=== PATIENT | female | born 1945 | race Caucasian/White ===

== ENCOUNTER → 2020-02-19 09:15 | Outpatient (BNVA) | payer MEDICARE, OTHER, SELFPAY | PROVIDERS: Family Provider Nurse Practitioner; PCP Nurse Practitioner; Visit Provider Nurse Practitioner | DX: E55.9 Vitamin D deficiency, unspecified (principal); E78.5 Hyperlipidemia, unspecified; I10 Essential (primary) hypertension | CPT/HCPCS: 80053; 80061; 82306 ==

== ENCOUNTER → 2020-07-11 09:28 | Outpatient (BNVA) | payer MEDICARE, OTHER, SELFPAY | PROVIDERS: Family Provider Nurse Practitioner; PCP Nurse Practitioner; Visit Provider Nurse Practitioner | DX: I10 Essential (primary) hypertension (principal); K21.9 Gastro-esophageal reflux disease without esophagitis; F41.8 Other specified anxiety disorders; M54.16 Radiculopathy, lumbar region; E78.2 Mixed hyperlipidemia | CPT/HCPCS: 80053; 80061 ==

== ENCOUNTER → 2021-01-08 09:35 | Outpatient (BNVA) | payer MEDICARE, OTHER, SELFPAY | PROVIDERS: Family Provider Nurse Practitioner; PCP Nurse Practitioner; Visit Provider Nurse Practitioner | DX: I10 Essential (primary) hypertension (principal); E78.2 Mixed hyperlipidemia; K21.9 Gastro-esophageal reflux disease without esophagitis; M54.16 Radiculopathy, lumbar region; J30.1 Allergic rhinitis due to pollen; F41.8 Other specified anxiety disorders | CPT/HCPCS: 80053; 80061; 84443 ==

== ENCOUNTER → 2021-01-09 11:56 | Outpatient (BNVA) | payer MEDICARE, OTHER, SELFPAY | PROVIDERS: Family Provider Nurse Practitioner; PCP Nurse Practitioner; Visit Provider Nurse Practitioner | DX: I10 Essential (primary) hypertension (principal) | CPT/HCPCS: 81003; 87086 ==

== ENCOUNTER → 2021-04-22 14:54 | Outpatient (BNVA) | payer MEDICARE, OTHER, SELFPAY | PROVIDERS: Family Provider Nurse Practitioner; PCP Nurse Practitioner; Visit Provider Nurse Practitioner Family | DX: J06.9 Acute upper respiratory infection, unspecified (principal); Z20.822 Contact with and (suspected) exposure to COVID-19 | CPT/HCPCS: 87635 ==

== ENCOUNTER → 2021-07-07 09:20 | Outpatient (BNVA) | payer MEDICARE, OTHER, SELFPAY | PROVIDERS: Family Provider Nurse Practitioner; PCP Nurse Practitioner; Visit Provider Nurse Practitioner | DX: I10 Essential (primary) hypertension (principal); E55.9 Vitamin D deficiency, unspecified; E78.2 Mixed hyperlipidemia; K21.9 Gastro-esophageal reflux disease without esophagitis; M54.16 Radiculopathy, lumbar region; J30.1 Allergic rhinitis due to pollen; F41.8 Other specified anxiety disorders | CPT/HCPCS: 80053; 80061; 81000; 82306; 84443; 85025 ==

== ENCOUNTER → 2021-12-19 10:40 | Outpatient (BNVA) | payer MEDICARE, OTHER, SELFPAY | PROVIDERS: Family Provider Nurse Practitioner; PCP Nurse Practitioner; Visit Provider Nurse Practitioner | DX: I10 Essential (primary) hypertension (principal); E78.5 Hyperlipidemia, unspecified | CPT/HCPCS: 80053; 80061 ==

== ENCOUNTER → 2022-04-16 09:58 | Outpatient (BNVA) | payer MEDICARE, OTHER, SELFPAY | PROVIDERS: Family Provider Nurse Practitioner; PCP Nurse Practitioner; Visit Provider Nurse Practitioner Family | DX: R05.3 Chronic cough (principal); I10 Essential (primary) hypertension; T67.5XXA Heat exhaustion, unspecified, initial encounter | CPT/HCPCS: 71046; 80053; 81000; 84443 ==

== ENCOUNTER → 2022-06-18 09:45 | Outpatient (BNVA) | payer MEDICARE, OTHER, SELFPAY | PROVIDERS: Family Provider Nurse Practitioner; PCP Nurse Practitioner; Visit Provider Nurse Practitioner | DX: E78.2 Mixed hyperlipidemia (principal); K21.9 Gastro-esophageal reflux disease without esophagitis; M54.16 Radiculopathy, lumbar region; I10 Essential (primary) hypertension; J30.1 Allergic rhinitis due to pollen; F41.8 Other specified anxiety disorders; E55.9 Vitamin D deficiency, unspecified | CPT/HCPCS: 80053; 80061; 81000; 82306 ==

== ENCOUNTER → 2022-10-12 15:40 | Outpatient (BNVA) | payer MEDICARE, OTHER, SELFPAY | PROVIDERS: Family Provider Nurse Practitioner; PCP Nurse Practitioner; Visit Provider Nurse Practitioner | DX: F41.8 Other specified anxiety disorders (principal); I10 Essential (primary) hypertension | CPT/HCPCS: 80053; 85025 ==

== ENCOUNTER → 2023-03-04 09:43 | Outpatient (BNVA) | payer MEDICARE, OTHER, SELFPAY | PROVIDERS: Family Provider Nurse Practitioner; PCP Nurse Practitioner; Visit Provider Nurse Practitioner | DX: E78.2 Mixed hyperlipidemia (principal); K21.9 Gastro-esophageal reflux disease without esophagitis; M54.16 Radiculopathy, lumbar region; I10 Essential (primary) hypertension; J30.1 Allergic rhinitis due to pollen; F41.8 Other specified anxiety disorders; E55.9 Vitamin D deficiency, unspecified | CPT/HCPCS: 80053; 80061; 81000; 82306; 84443 ==

== ENCOUNTER → 2023-08-12 10:35 | Outpatient (BNVA) | payer MEDICARE, OTHER, SELFPAY | PROVIDERS: Family Provider Nurse Practitioner; PCP Nurse Practitioner; Visit Provider Nurse Practitioner | DX: I10 Essential (primary) hypertension (principal); E78.2 Mixed hyperlipidemia; K21.9 Gastro-esophageal reflux disease without esophagitis; M54.16 Radiculopathy, lumbar region; F41.8 Other specified anxiety disorders; Z23 Encounter for immunization | CPT/HCPCS: 80053; 80061 ==

== ENCOUNTER → 2023-11-04 11:20 | Outpatient (BNVA) | payer MEDICARE, OTHER, SELFPAY | PROVIDERS: Family Provider Nurse Practitioner; PCP Nurse Practitioner; Visit Provider Nurse Practitioner | DX: I10 Essential (primary) hypertension (principal); R06.02 Shortness of breath; E78.2 Mixed hyperlipidemia; K21.9 Gastro-esophageal reflux disease without esophagitis; M54.16 Radiculopathy, lumbar region; F41.8 Other specified anxiety disorders | CPT/HCPCS: 80053; 80061; 84443 ==

== ENCOUNTER 2023-11-12 09:18 | Outpatient (CLI) | payer MEDICARE, OTHER, SELFPAY ==
--- NOTE | 2023-11-12 09:45 | USCV_ITS ---
Shiela Lopez Age: 78 Gender: F : 1945 Exam Date: 11/12/2023 09:50 Ordering Phys: Bernadette Candelario Technologist: Jesse Shane [place] [facility] [place]: hypertension BP: 128 / 78 HR: 0 Rhythm: Sinus Technical Quality: Adequate MEASUREMENTS (Male / Female) Normal Values 2D ECHO LVOT Diameter 1.6 cm IVC Diameter 1.5 cm M-MODE LA Ao Ratio MM 1.0 AV Cusp Separation MM 1.4 cm DOPPLER AV Peak Velocity 157.0 cm/s AV Area Cont Eq vti 1.3 cm squared MV Area PHT 4.6 cm squared Mitral E to A Ratio 1.0 TV Peak Velocity 188.3 cm/s TR Peak Velocity 206.0 cm/s TR Peak Gradient 17.0 mmHg PV Peak Velocity 65.0 cm/s FINDINGS Left Ventricle Normal left ventricular size and systolic function, EF 60%.no regional wall motion abnormalities. Grade I/IV diastolic dysfunction (abnormal relaxation filling pattern), normal to mildly elevated filling pressures. Mild left ventricular hypertrophy. No regional wall motion abnormalities. Right Ventricle The right ventricle is normal in size and function. Right Atrium The right atrium is normal in size. Left Atrium The left atrium is normal in size. Mitral Valve No gross abnormalities noted Aortic Valve Trace to mild aortic valve regurgitation. Tricuspid Valve No gross abnormalities noted Pulmonic Valve Mild pulmonary valve regurgitation. Pericardium Normal pericardium without effusion. Aorta Normal ascending aorta dimension. IVC Normal inferior vena cava. CONCLUSIONS Normal left ventricular size and systolic function, EF 60%.no regional wall motion abnormalities. Grade I/IV diastolic dysfunction (abnormal relaxation filling pattern), normal to mildly elevated filling pressures. Mild left ventricular hypertrophy. No regional wall motion abnormalities. Trace to mild aortic valve regurgitation. Mild pulmonary valve regurgitation. There is no pericardial effusion. There are no intracardiac masses. No similar previous studies are available for comparison Dr Carlyle Turner MD [facility] (Electronically Signed) Final Date: 22 November 2023 09:36 S
== END 2023-11-12 09:19 | disposition home or self-care (01) ==
LOC: RAD 09:19
PROVIDERS: Family Provider Nurse Practitioner; PCP Nurse Practitioner; Visit Provider Nurse Practitioner
DX: I10 Essential (primary) hypertension (principal); I51.89 Other ill-defined heart diseases; I37.1 Nonrheumatic pulmonary valve insufficiency
CPT/HCPCS: 93306

== ENCOUNTER → 2023-12-22 15:03 | Outpatient (BNVA) | payer MEDICARE, OTHER, SELFPAY | PROVIDERS: Family Provider Nurse Practitioner; PCP Nurse Practitioner; Referring Provider Nurse Practitioner; Visit Provider Internal Medicine Cardiovascular Disease | DX: R07.9 Chest pain, unspecified (principal); I44.4 Left anterior fascicular block; R06.02 Shortness of breath; R07.89 Other chest pain; I10 Essential (primary) hypertension; E78.2 Mixed hyperlipidemia; Z78.9 Other specified health status; R94.31 Abnormal electrocardiogram [ECG] [EKG] | CPT/HCPCS: 93005; 99204 ==

== ENCOUNTER 2024-02-11 08:41 | Outpatient (CLI) | payer MEDICARE, OTHER, SELFPAY ==
[2024-02-11 09:14] VITALS: BMI 28.5
--- NOTE | 2024-02-11 09:18 | NMCV_ITS ---
NM zurdo perf SPECT r/s* [id number] Shiela Lopez Age: 78 Gender: F : 1945 Exam Date: 02/11/2024 09:39 Ordering Phys: Carlyle Turner MD ([email or web address]) Technologist: CHRISTIAN Cohen Exam Location: [facility] Indications: CORONARY ANGIOPLASTY STATUS STRESS TEST Please see separate stress test report in [facility] for full findings IMAGE PROTOCOL Rest/Stress 1 Lexiscan Day Radiopharmaceutical Dose (mCi) Administration Site Administered by Rest: Tc-99m 10.4 IV CHRISTIAN Small Sestamibi Stress:Tc-99m 32.7 IV CHRISTIAN Small Sestamibi Rest: 11-Feb-2024 60 Discovery 630 Stress: 11-Feb-2024 30 Discovery 630 0.4mg Lexiscan. Supine position only as patient was unable to lay prone. SPECT RESULTS Technical Quality: Excellent Raw Data Analysis: Normal Image Corrections: No attenuation or motion correction applied Summed Stress Score: 11 Summed Rest Score: 2 Summed Difference Score: 9 PERFUSION FINDINGS Moderate area of minimal to moderately decreased tracer uptake involving all the inferior, inferolateral, apical lateral, apical septal and LV apex. Significant reversibility was noted in these all these regions FUNCTIONAL RESULTS (calculated via Gated SPECT) Stress Image LV EF (%): 84 Stress EDV (mL):62 TID: 0.89 Stress ESV (mL):10 FUNCTIONAL FINDINGS: Segmental wall motion analysis revealing no gross wall motion abnormalities IMPRESSIONS 1. Myocardial perfusion imaging revealing moderate area of reversible defect involving the inferior, inferolateral and apical regions suggesting ischemia, predominantly in the distribution of the left circumflex artery with some involvement of the right coronary artery. 2. Normal LV ejection fraction of 84% 3. LV wall motion analysis revealing no gross wall motion abnormalities. 4. Normal LV volume. No similar previous studies are available for comparison Dr Carlyle Turner MD [facility] (Electronically Signed) Final Date: 11 Feb 2024 14:13 S
--- NOTE | 2024-02-11 09:18 | ECG_ITS ---
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 Interpretive Statements NAME OF STUDY: LEXISCAN SESTAMIBI STRESS TEST INDICATION: Chest Pain; Shortness of Breath PROCEDURE: At the baseline, the EKG revealed sinus bradycardia with a poor R wave progression. 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 Left axis deviation. Voltage criteria for LVH.. The baseline heart was 59 bpm with a blood pressue of 158/84 mm of Hg Lexiscan was infused over a period of 20 seconds. A total of 0.4 milligrams of Lexiscan was infused. The stress phase was continued for a total of 5 minutes. Heart rate at the end of the stress phase was left anterior descending artery bpm with a blood pressure 149/68 mm of Hg. The EKG at the peak infusion revealed no significant changes. Sestamibi was injected 20 seconds after the Lexiscan infusion. Heart rate at the end of the recovery phase was 77 bpm with a blood pressure of 152/67 mm of Hg. CONCLUSION: 1. No significant EKG changes with the LexiScan infusion 2. No LexiScan induced chest pain or cardiac arrhythmia 3. Normal blood pressure and heart rate response 4. Sestamibi/sestamibi perfusion scan pending; see separate report. Electronically Signed On 02-12-2024 18:41:41 CDT by Carlyle Turner M.D. [id number]
[2024-02-11] MEDS: regadenoson 0.4 Mg/5 ml Syringe 0.400000000000000022 MG IVP (10:38)
[2024-02-11 10:52] VITALS: BP 116/84; PULSE 62
== END 2024-02-11 08:42 | disposition home or self-care (01) ==
PROVIDERS: PCP Nurse Practitioner; Visit Provider Internal Medicine Cardiovascular Disease
DX: R06.09 Other forms of dyspnea (principal); Z98.61 Coronary angioplasty status; R07.9 Chest pain, unspecified
CPT/HCPCS: 36415; 78452; 93017; 96374; A9500; J2785

== ENCOUNTER 2024-02-16 08:52 | Outpatient (CLI) | payer MEDICARE, OTHER, SELFPAY ==
--- NOTE | 2024-02-16 09:30 | CT_ITS ---
WS: [id number] CT chest wo con [id number] HISTORY: R06.02 - Shortness of breath TECHNIQUE: Axial imaging performed through the thorax. Coronal and sagittal reformats are submitted. All CT scans at [facility] use at least one of these dose optimization techniques: automated exposure control; mA and/or kV adjustment per patient size (includes targeted exams where dose is mat ched to clinical indication); or iterative reconstruction. CONTRAST: None DLP: 410.86 mGy.cm COMPARISON: None available. Lungs and central airway: Lungs are well-aerated. There is a small slightly spiculated nodule measuri ng 3.5 mm in the RIGHT upper lobe. No additional mass or nodule. No pneumonia. Pleura: Normal. No pleural effusion. Heart and pericardium: Normal size heart with no pericardial effusion. Mediastinum and chad: Hilar and paratracheal lymph nodes remain normal size but the number is increas ed. This may be reactive. Vessels: Moderate atherosclerosis thoracic aorta. Pulmonary artery is mildly dilated up to 3.1 cm. Chest wall and lower neck: No soft tissue masses. Upper abdomen: Large hiatal hernia. High density material in the stomach may be medicinal. Patient lockwood s known numerous hepatic cysts. One of the cysts now has calcification and is slightly decreased in s ize. Spleen is are elevated. Osseous structures: Focal increase in thoracic kyphosis centered at the thoracolumbar junction. CT/CT chest wo con [id number] IMPRESSION: 1. Slightly spiculated nodule in the RIGHT upper lobe at 3.5 mm. Recommend fol low-up chest CT in 3 months. 2. Large hiatal hernia. Hiatal hernia has increased in size since 2017. 3. Patient has numerous known hepatic cysts. One of the cysts has decreased in size and now contains calcification and Hounsfield units are elevated. Recomme nd follow-up ultrasound of the liver to evaluate for solid mass.
== END 2024-02-16 08:53 | disposition home or self-care (01) ==
LOC: RAD 08:52
PROVIDERS: PCP Nurse Practitioner; Visit Provider Nurse Practitioner
DX: R06.02 Shortness of breath (principal); K44.9 Diaphragmatic hernia without obstruction or gangrene; K76.89 Other specified diseases of liver
CPT/HCPCS: 71250; 99215

== ENCOUNTER → 2024-03-01 14:29 | Outpatient (BNVA) | payer MEDICARE, OTHER, SELFPAY | PROVIDERS: PCP Nurse Practitioner; Visit Provider Nurse Practitioner | DX: N39.0 Urinary tract infection, site not specified (principal); F41.8 Other specified anxiety disorders | CPT/HCPCS: 81000 ==

== ENCOUNTER → 2024-03-16 08:45 | Outpatient (BNVA) | payer MEDICARE, OTHER, SELFPAY | PROVIDERS: PCP Nurse Practitioner; Visit Provider Internal Medicine Cardiovascular Disease | DX: R07.89 Other chest pain (principal); Z79.01 Long term (current) use of anticoagulants; R06.02 Shortness of breath | CPT/HCPCS: 80048; 85025 ==

== ENCOUNTER 2024-03-20 05:47 | Outpatient (CLI) | payer MEDICARE, OTHER, SELFPAY ==
[2024-03-20] VITALS (24 sets, daily range): BP systolic 130–173; BP diastolic 64–86; PULSE 52–69; RESP 6–18; TEMP 36.7; O2SAT 92–98; BMI 29.0
--- NOTE | 2024-03-20 06:00 | XACV_ITS ---
Exam Room: 2 Ht: 155 cm Wt: 70 kg BSA: 1.76 m2 Gender: Female : 1945 Any Known Allergies: Other Exam Priority: Routine Procedure(s): Procedure Description: Diagnostic procedure Procedure Description: Left Heart Catheterization Procedure Description: Left ventriculography Procedure Description: Coronary Angiography Johnny SANTO; Diagnostic Cath Status: Elective Diagnostic Findings * The left anterior descending artery is a medium caliber vessel which appears to taper off to its the LV apex. The proximal segment was found to have mild to moderate coronary calcification. No significant stenosis were noted. The first diagonal branch was found to have an ostial 50% narrowing. No other significant stenotic lesions.. * The left main is a medium caliber vessel with minimal intimal irregularities and mild diffuse coronary calcification. * The left circumflex artery is a medium caliber was which also was found to have some intimal irregularities proximally. It gives off a high obtuse marginal branch which also was found to mild diffuse intimal irregularities. The mid circumflex artery was found to have mild diffuse intimal irregularities. * The right coronary artery is a medium caliber dominant vessel which appears to have minimal intimal irregularities in the distal segment. No significant stenotic lesions were noted. Conclusions 1. 78-year-old white female with history of hypertension, dyslipidemia, presents with complaints of chest pain and shortness of breath. She had a Myocardial perfusion imaging which revealed moderate area of reversible defect in the distribution of the left circumflex artery with minimal reversible defect in the RCA territory. In view of the patient's symptoms and the abnormal objective findings, in order to further evaluate the coronary status, a cardiac catheterization was recommended. Patient underwent left heart catheterization with the left and right coronary angiogram and LV angiogram today. The findings are as follows. 2. Mild diffuse coronary artery disease. Mild to moderate calcification in the proximal segments of all the 3 coronary arteries. Normal LV ejection fraction 65%. Features of left-ventricular diastolic dysfunction with an LVEDP of 28 mmHg. Interventional RX Recommendation: none Diagnostic RX Recommendation: medical therapy and/or counseling LV EDP: 28 mmHg Ventriculography Ejection Fraction: 65.0 % Left Ventriculography Findings: * The LV gram was performed in the MAGALLANES projection. LV cavity was found to be of normal size. The LV ejection fraction was 65%. No significant valve prolapse or mitral regurgitation. No filling defects were noted. The LVEDP was 28 mmHg. Pressures Phase:Rest AO : 121 / 60 ( 84 ) @ 8:33:00 AM 98 / 73 ( 86 ) @ 8:34:00 AM 94 / 71 ( 84 ) @ 8:41:00 AM 152 / 56 ( 101 ) @ 8:47:00 AM 141 / 45 ( 79 ) @ 8:47:00 AM LV : 136 / -6 / 21 @ 8:46:00 AM 136 / 6 / 28 @ 8:47:00 AM 133 / 8 / 30 @ 8:47:00 AM Valves Phase:DefaultPhase AV : 0.0 @ 7:54:28 AM 0.0 @ 7:54:28 AM AV Mean Gradient: 0.0 @ 7:54:28 AM 0.0 @ 7:54:28 AM Clinical Evaluation EBL: 5mL-10mL Procedural Details Pre-Procedure Time Out. Identified patient by full name and date of as verbalized by the patient/guarantor. Does the consent match the physician's order: Yes. Accurate & Complete Informed Consent: Yes. Inpatient/Outpatient History & Physical on Chart: Yes. If H&P is completed, is and addenduem needed: Yes; If yes, is the addendum complete: Yes. Visualize and Verify Site with Patient/Guarantor: N/A. Relevant Radiology Images available: Yes. Pre-op teaching completed and patient verbalized understanding. The risks, benefits, and alternatives of sedation and/or procedure were discussed by physician. The patient agrees to continue. Procedure started. [facility] Clinical Fraility Score: 3: Managing Well. Production Machine Shop Supervisor Indications: Worsening Angina. Chest Pain Symptom Assessment: Typical Angina Symptoms. Correct patient, site and procedure confirmed by cath team. Current diagnosis: Chest Pain. PERRLA. Strong, equal hand tracing lathe set up operator bilaterally. Lungs clear x 5 lobes. IV Site on Arrival: 20 gauge in the left anticubital. IV Fluids: 0.9% NaCl at KVO. 0 mL infused prior to cath lab radiology technician. Pre Procedural Pulses: bilateral dorsalis pedis was 3+. Pre Procedural Pulses: bilateral posterior tibial was 2+. Pre Procedural Pulses: bilateral radial was 2+. Oxygen started at 2liters/min via nasal canula. right groin was prepped with chloroprep then draped in the usual sterile fashion. right radial was prepped with chloroprep then draped in the usual sterile fashion. Baseline sample Acquired. HR: 71 BPM. Physician arrived. Physician scrubbed in. Immediate Pre-Procedure Time Out. Correct Patient: Yes; Correct Procedure: Yes; Correct Site: Yes; Correct Patient Position: Yes; Correct Supplies: Yes; Dried Flammable Prep: Yes; Blood Products Available: N/A;. Lidocaine 1% infiltrated to the right radial. Arterial access obtained. A 5 samoan Gage catheter in over wire. Multiple views taken of left coronary artery. Catheter redirected to the RCA. Catheter removed over the exchange wire. A 5 samoan JR4 catheter in over wire. Multiple views taken of right coronary artery. Catheter removed over the exchange wire. A 5 samoan Angled Pig catheter in over wire. EDP Sample taken: LV 136/-7,21; HR: 66 BPM; SpO2: 93%. LV gram performed in MAGALLANES @ 10 mL/second for a total of 30 mL. EDP Sample taken: LV 136/6,28; HR: 64 BPM; SpO2: 93%. Pullback taken: LV 133/8,30; AO 152/56(101); Mean: 0mmHg, Peak to Peak: 0mmHg, SEP: 7sec/min; HR: 65 BPM; SpO2: 94%. Catheter removed over the exchange wire. A TR Band was successful obtaining hemostatsis at the Right Radial artery insertion site. Post Procedure: Pulses reassessed and unchanged. PERRLA. Strong, equal hand tracing lathe set up operator bilaterally. No VTE prophylaxis required. Medication's Wasted: Lidocaine 1% = 17 mL. Medication's Wasted: Nitro = 49.7 mcg. Medication's Wasted: Heparin = 1000 units. Medication's Wasted: Other = Fentanyl 50mcg Versed 1 mg. Total IV fluids: 275 mL. Vital chart was stopped. Complications: None. Estimated blood loss: 5mL-10mL. Responsiveness - Normal response to verbal stimuli; alert and oriented, PERRLA. Airway - Unaffected, no intervention required; spontaneous ventilation. Circulation: W/N/L, pulses unchanged. Nausea/Vomiting: No. Procedure completed. Patient transferred by wheelchair to CPRU. Access Site Site: Right Radial artery Sheath Size: 6 Fr Hemostasis Method: TR Band Hemostasis Success: Successful Procedure Medications Start: 7:16 AM Stop: 7:16 AM Medication: Versed Amount: 1 mg Route: I.V. Start: 7:22 AM Stop: 7:22 AM Medication: Fentanyl Amount: 25 mcg Route: I.V. Start: 7:29 AM Stop: 7:29 AM Medication: Verapamil Amount: 5 mg Route: I.A. Start: 7:29 AM Stop: 7:29 AM Medication: Nitrogylcerin Amount: 200 mcg Route: I.A. Start: 7:29 AM Stop: 7:29 AM Medication: 0.9% Saline Amount: 250 ml Route: I.V. bolus Start: 7:31 AM Stop: 7:31 AM Medication: Heparin Amount: 5000 units Route: I.V. Start: 7:37 AM Stop: 7:37 AM Medication: Fentanyl Amount: 25 mcg Route: I.V. Start: 7:43 AM Stop: 7:43 AM Medication: Nitrogylcerin Amount: 100 mcg Route: I.A. I, the attending physician, have reviewed and verified all procedure medications. Yes, all medications given per verbal order History/Risk Factors Hypertension: Yes Dyslipidemia: Yes Peripheral Arterial Disease (PAD): No Myocardial Infarction (OK): No Obesity: No Renal Disease: No Tobacco Use: Never Prior Interventions PCI: No CABG: No Valve Surgery: No Report Signatures Finalized by Dr Carlyle Turner MD [facility] on 03/21/2024 01:04 AM
[2024-03-20] MEDS: diphenhydrAMINE 50 mg Capsule PO (06:15)
[2024-03-20] MEDS: aspirin 325 mg Tablet PO (06:15)
--- NOTE | 2024-03-20 07:06 | PM.HP ---
Providers/Chief Complaint Admitting Physician: NOREEN Turner MD/cardiology Primary Care Provider: Bernadette Candelario, BASKET BRAIDER-C Chief Complaint: R94.39, R06.02, R07.9 History of Present Illness Shiela Lopez is a 78 year old female with a history of hypertension and dyslipidemia, presents with complaints of chest pain, shortness of breath and fatigue. She had a Myocardial perfusion imaging which revealed a moderate area of reversible defect, mostly in the distribution of the left circumflex artery with some involvement of the right coronary artery. In view of her ongoing symptoms, in order to further evaluate the coronary status, a cardiac catheterization was recommended. Patient has no previous history for coronary disease, myocardial infarction or congestive heart failure. Currently has no fever, chills or cough. No other specific complaints. She also has a history of situational anxiety, lumbar radiculopathy, vitamin D deficiency and seasonal allergies. Review of Systems Narrative: CONSTITUTIONAL: No fever or chills. EYES: No blurring of vision or other visual disturbances lately. ENT: No hoarseness of voice, auditory disturbances or sore throat. CARDIOVASCULAR: As mentioned above. RESPIRATORY: No significant cough. GASTROINTESTINAL: No hematemesis or melena. GENITOURINARY: No dysuria or hematuria. INTEGUMENTARY: No skin rashes or history of skin cancer. NEURO: No transient ischemic attacks or amaurosis. PSYCHIATRIC: No history of psychosis or major depression. HEMATOLOGIC: No bleeding disorders or significant anemia. ENDOCRINE: No history of polyuria or polydipsia. MUSCULOSKELETAL: No recent joint pain or swelling. ALLERGY/IMMUNOLOGY: As mentioned above. Medications/Allergies Home Medications Medication Instructions Recorded Confirmed Last Taken Type acetaminophen 650 mg 650 mg PO Q12H PRN Pain 02/21/20 03/17/24 Unknown History tablet,extended release (Arthritis Pain Reliever) artifi.tears(hypromellose)(PF) 0.3 1 drop ophthalmic (eye) DAILY PRN 02/21/20 03/17/24 Unknown History % eye drops Dry Eyes aspirin 81 mg tablet,delayed 81 mg PO DAILY 02/21/20 03/17/24 03/19/24 21:00 History release (Aspir-) cholecalciferol (vitamin D3) 25 25 mcg PO DAILY 02/21/20 03/17/24 03/19/24 07:30 History mcg (1,000 unit) capsule diphenhydramine HCl 25 mg capsule 25 mg PO TID PRN ALLERGY SYMPTOMS 02/21/20 03/17/24 Unknown History (Benadryl) magnesium 250 mg tablet 250 mg PO DAILY 02/21/20 03/17/24 03/19/24 07:30 History meclizine 25 mg tablet 25 mg PO DAILY PRN dizziness 02/21/20 03/17/24 Unknown History multivitamin (Daily Multi-Vitamin 1 tab PO DAILY 02/21/20 03/17/24 03/19/24 07:30 History tablet) calcium carbonate 1,000 1 tab PO BID PRN Heartburn 01/08/21 03/17/24 Unknown History mg-magnesium hydroxide 200 mg chewable tablet (Antacid (calcium carb-magnesium hyd)) melatonin 3 mg capsule 3 mg PO DAILY PRN sleep 01/08/21 03/17/24 Unknown History polyethylene glycol 3350 17 17 g PO DAILY PRN Constipation 01/08/21 03/17/24 Unknown History gram/dose oral powder (ClearLax) atorvastatin 10 mg tablet 10 mg PO DAILY #90 tabs 01/31/24 03/17/24 03/19/24 21:00 Rx famotidine 40 mg tablet 40 mg PO DAILY #90 tabs 01/31/24 03/17/24 03/20/24 04:45 Rx gabapentin 100 mg capsule 100 mg PO BID #180 caps 01/31/24 03/17/24 03/20/24 04:45 Rx losartan 100 mg tablet 100 mg PO DAILY #90 tabs 01/31/24 03/17/24 03/20/24 04:45 Rx triamterene 37.5 1 tab PO DAILY #90 tabs 01/31/24 03/17/24 03/20/24 04:45 Rx mg-hydrochlorothiazide 25 mg tablet metoprolol tartrate 25 mg tablet 12.5 mg (1/2 x 25 mg) PO BID #30 02/16/24 03/17/24 03/20/24 04:45 Rx tabs venlafaxine 75 mg capsule,extended 75 mg PO QAM #30 caps 03/01/24 03/17/24 03/20/24 04:45 Rx release 24 hr (Effexor XR) Allergies Allergy/AdvReac Type Severity Reaction Status Date / Time codeine Allergy Unresponsiv Verified 03/07/24 09:19 e sulfamethoxazole Allergy ALGY-Rash Verified 03/07/24 09:19 [From ] trimethoprim [From ] Allergy ALGY-Rash Verified 03/07/24 09:19 PFSH Acute PFSH: Medical History Gastric reflux Seasonal allergic rhinitis due to pollen Lumbar radiculopathy, chronic Vitamin D deficiency Hyperlipidemia Situational anxiety Essential hypertension Surgical History History of cataract surgery 03/30/23 04/13/23 Dr. Barrett [place], [place] History of right breast biopsy History of hysterectomy Family History Other Cancer Hypertension Social History Smoking and tobacco/nicotine status: never used tobacco/nicotine Second hand smoke exposure: No Alcohol intake: never Substance/Drug Use: never Adopted: No Caregiver/support person: No Lives independently: Yes Household members: none Housing: House Marital status: / Number of children: 3 Highest education level completed: Some College, No Degree Current occupational status: retired Do you think of yourself as: Straight/Heterosexual Current gender identity: Female Vitals/I&O/Wt Last Vital Signs Temp 98.1 F 03/20/24 06:00 Pulse 62 03/20/24 06:00 Resp 18 03/20/24 06:00 BP 173/77 03/20/24 06:00 Pulse Ox 97 03/20/24 06:00 O2 Del Method Room Air 03/20/24 06:00 Weight last 48 hrs Weight 154 lb Physical Exam Narrative: GENERAL: The patient is alert and oriented times three. Not in any acute distress. HEENT: No significant pallor, icterus or lymphadenopathy.Oral cavity: There are no mucous membrane lesions. NECK: Trachea appears to be central. No masses noted. No JVD or thyromegaly appreciated. RESPIRATORY: Chest is symmetrical. No intercostals muscle retraction or any accessory muscle activation. There is no chest wall tenderness. Breath sounds are heard bilaterally. No rales or rhonchi heard. No evidence of any consolidation. BREASTS: Deferred. HEART: The heart sounds are normal. No S3 or S4. No significant murmurs. No pericardial rub ABDOMEN: No vessel pulsations or distention. No tenderness. No organomegaly appreciated. Bowel sounds are normally heard. : Deferred. RECTAL: Deferred. LYMPHATIC: No lymphadenopathy noted in the neck. EXTREMITIES: No edema or cyanosis. No clubbing. MUSCULOSKELETAL: No acute joint deformities or swelling SKIN: There are no significant rashes or ecchymosis NEUROPSYCHIATRIC: The patient is alert and oriented x3. Appears to be in a good mood. No tremors or rigidity noted. Data Other Labs: Laboratory Last Values Blood Type O Positive 03/20/24 06:10 Rho(D) Type Rh positive 03/20/24 06:10 Antibody Screen Negative 03/20/24 06:10 A&P Assessment and plan (1) Abnormal myocardial perfusion study: Myocardial perfusion imaging done on 02/11/2024 revealed moderate area of reversible defect in the distribution of the left circumflex artery with some involvement of the right coronary artery suggesting ischemia in the distribution of the left circumflex artery and possibly some involvement of the right coronary artery. In view of the patient's ongoing symptoms of chest tightness/heaviness/shortness of breath and fatigue, in order to further evaluate the coronary status, a cardiac catheterization was recommended. Risk and benefits were discussed. The risk of bleeding, hematoma, vascular injury, myocardial infarction, myocardial perforation, malignant cardiac arrhythmias ,CVA, renal failure and other concomitant complications were explained in detail. Patient understood this well and consented to proceed. (2) Chest pain: As mentioned above Qualifiers: Chest pain type: other chest pain Qualified Code(s): R07.89 - Other chest pain (3) SOB (shortness of breath) on exertion: No orthopnea or PND (4) Hyperlipidemia: Will continue on the current medications. Qualifiers: Hyperlipidemia type: mixed hyperlipidemia Qualified Code(s): E78.2 - Mixed hyperlipidemia (5) Essential hypertension: Currently of stage II Plan Based on the results of the angiogram, further management decisions will be made. Attestations Medical Necessity Statement*: Patient may require overnight stay Coding Level of Care Code 70648 Diagnoses Abnormal myocardial perfusion study R94.39 Other chest pain R07.89 Chest pain type: other chest pain SOB (shortness of breath) on exertion R06.02 Mixed hyperlipidemia E78.2 Hyperlipidemia type: mixed hyperlipidemia Essential hypertension I10
--- NOTE | 2024-03-20 07:14 | W.PM.OPSUD ---
Surgery/Procedure H&P Update DATE OF PROCEDURE: March 20, 2024 DATE H&P PERFORMED: 03/20/24 H&P UPDATE INFORMATION: I have reviewed H&P completed within last 30 days, I have examined patient prior to procedure and No changes to prior documentation PREOP DIAGNOSIS: Possible ASHD PRIMARY INDICATION FOR PROCEDURE: Chest pain/shortness of breath, abnormal Myocardial perfusion imaging, hypertension, dyslipidemia PLANNED PROCEDURE: Operation Date: 03/20/24 07:00 Proposed Procedures p Cardiac Catheterization 44746, R94.39, R06.02, R07.9(Left) - Carlyle Turner MD PATIENT REASSESSED PRIOR TO SEDATION, WITH NO CHANGE NOTED: Yes PHYSICAL EXAM: alert, oriented x 3, clear to auscultation bilaterally and regular rate & rhythm AIRWAY EVAL/ANESTHESIA PLAN: normal airway, see other exam findings, ASA III, Monitored Anesthesia, Local Anesthesia, Risks, benefits & alternatives of sedation and/or procedure discussed and Patient agrees to continue as planned
--- NOTE | 2024-03-20 08:10 | PC.NURSE ---
0810 - 2nd TR band applied to right radial with 10 mL air.
== END 2024-03-20 13:43 | disposition home or self-care (01) ==
PROVIDERS: Internal Medicine; PCP Nurse Practitioner; Visit Provider Internal Medicine Cardiovascular Disease
DX: I25.10 Atherosclerotic heart disease of native coronary artery without angina pectoris (principal); E78.2 Mixed hyperlipidemia; I10 Essential (primary) hypertension; Z79.82 Long term (current) use of aspirin
CPT/HCPCS: 36415; 86850; 86900; 93458; 96374; 96375; 99152; 99153; C1769; C1887; C1894; J1644; J2250; J3010; J3490; J7030; Q0163; Q9967

== ENCOUNTER 2024-03-24 08:06 | Outpatient (CLI) | payer MEDICARE, OTHER, SELFPAY ==
--- NOTE | 2024-03-24 09:00 | US_ITS ---
WS: [id number] Exam: [place] liver [id number] Date/Time of Exam: 03/24/2024 8:22 AM Reason For Exam: K76.89 - Other specified diseases of liver 4.5 x 4.5 cm solid slightly hypoechoic mass with rim calcification seen in the RIGHT lobe of the live r. There are also multiple cysts in the liver. The largest cyst is in the RIGHT lobe and measures 5.2 cm in greatest diameter. No intra or extrahepatic ductal dilatation. The liver is not enlarged and m easures 14.1 cm in greatest dimension. Normal-appearing gallbladder. The common bile duct is not dila romeo and measures 4 mm in greatest diameter. The abdominal aorta is normal in caliber. Normal-appearin g RIGHT kidney measures 10 x 4.3 x 3.8 cm. RIGHT renal cortex measures 1 cm in greatest thickness. Th e pancreas was obscured by bowel gas. No free fluid in the RIGHT abdomen. Recommendations: CT scan of the liver using hepatic protocol would be recommended for further work-up . US/US liver [id number] IMPRESSION: 1. 4.5 x 4.5 cm solid slightly hypoechoic mass with rim calcification in the RI GHT lobe of the liver. This was not present on prior abdominal CT scan performe d 02/08/2017. Differential considerations include granuloma, parasitic lesion, ad enoma, malignant primary liver lesion or metastatic lesion. 2. There are multiple cysts in the liver which show little change since prior a bdominal CT scan. No other significant finding.
== END 2024-03-24 08:07 | disposition home or self-care (01) ==
LOC: RAD 08:06
PROVIDERS: PCP Nurse Practitioner; Visit Provider Nurse Practitioner
DX: K76.89 Other specified diseases of liver (principal)
CPT/HCPCS: 76705

== ENCOUNTER 2024-04-11 11:14 | Outpatient (CLI) | payer MEDICARE, OTHER, SELFPAY ==
[2024-04-11] MEDS: iohexol 350 mg/mL 500 mL Btl (per mL) PO (11:58)
[2024-04-11] MEDS: iohexol 350 mg/mL 500 mL Btl (per mL) IV (12:48)
--- NOTE | 2024-04-11 13:00 | CTR_ITS ---
PROCEDURE INFORMATION: Exam: CT Abdomen And Pelvis With Contrast Exam date and time: 04/11/2024 12:32 PM Age: 78 years old Clinical indication: Abnormal findings; Abnormal radiologic finding of the abdomen; Radiologic exam and body structure: Liver US; Prior surgery; Surgery date: 6+ months; Surgery type: Hyst; Additional info: R16.0 - hepatomegaly, not elsewhere classified TECHNIQUE: Imaging protocol: Computed tomography of the abdomen and pelvis with contrast. Radiation optimization: All CT scans at this facility use at least one of these dose optimization techniques: automated exposure control; mA and/or kV adjustment per patient size (includes targeted exams where dose is matched to clinical indication); or iterative reconstruction. Contrast material: OMNI 350; Contrast volume: 100 ml; Contrast route: INTRAVENOUS (IV); COMPARISON: [place] liver [id number] 03/24/2024 8:30 AM RADIATION DOSE METRICS: Total DLP (mGy-cm): 694.54 FINDINGS: Diaphragm: Moderate hiatal hernia. Liver: Numerous hepatic cysts. One cyst is of slightly higher density than the rest and contains coarse mural calcifications. That complex cyst is smaller than was seen previously, currently 4 cm in maximum dimension versus 8.3 cm previously. Gallbladder and biliary ducts: Normal. No calcified stones. No ductal dilation. Pancreas: Normal. No ductal dilation. Spleen: Normal. No splenomegaly. Adrenal glands: Normal. No mass. Kidneys and ureters: Bilateral renal cysts. Stomach and bowel: There is a large amount of colonic fecal material suggesting constipation. Appendix: No evidence of appendicitis. Intraperitoneal space: Unremarkable. No free air. No significant fluid collection. Vasculature: Unremarkable. No abdominal aortic aneurysm. Lymph nodes: Unremarkable. No enlarged lymph nodes. Urinary bladder: Unremarkable as visualized. Reproductive: Hysterectomy. Bones/joints: Unremarkable. No acute fracture. Soft tissues: Unremarkable. CT/CT abdomen pelvis w con* [id number] IMPRESSION: No acute subdiaphragmatic pathology. COMMENTS: Consistent with the [employer]'s Incidental Findings Committee white paper (J Am Jaimie Radiol 2018): Any incidental renal lesion less than 1 cm or classified as too small to characterize, or any incidental cystic renal lesion characterized as simple-appearing, is likely benign. No follow-up imaging is recommended for these lesions per consensus recommendations based on imaging criteria.
== END 2024-04-11 11:15 | disposition home or self-care (01) ==
LOC: RAD 11:16
PROVIDERS: PCP Nurse Practitioner; Visit Provider Nurse Practitioner
DX: R16.0 Hepatomegaly, not elsewhere classified (principal); K44.9 Diaphragmatic hernia without obstruction or gangrene; K76.89 Other specified diseases of liver; N28.1 Cyst of kidney, acquired; Z90.710 Acquired absence of both cervix and uterus
CPT/HCPCS: 74177; Q9967

== ENCOUNTER → 2024-04-18 14:57 | Outpatient (BNVA) | payer MEDICARE, OTHER, SELFPAY | PROVIDERS: PCP Nurse Practitioner; Visit Provider Internal Medicine Cardiovascular Disease | DX: I25.10 Atherosclerotic heart disease of native coronary artery without angina pectoris (principal); I10 Essential (primary) hypertension; E78.2 Mixed hyperlipidemia; R06.02 Shortness of breath | CPT/HCPCS: 99213 ==

== ENCOUNTER 2024-06-02 10:45 | Outpatient (CLI) | payer MEDICARE, OTHER, SELFPAY ==
--- NOTE | 2024-06-02 12:00 | CT_ITS ---
WS: [id number] CT chest wo con [id number] HISTORY: R91.1 - Solitary pulmonary nodule TECHNIQUE: Axial imaging performed through the thorax. Coronal and sagittal reformats are submitted. All CT scans at [facility] use at least one of these dose optimization techniques: automated exposure control; mA and/or kV adjustment per patient size (includes targeted exams where dose is mat ched to clinical indication); or iterative reconstruction. CONTRAST: None DLP: 441.21 mGy.cm COMPARISON: 02/16/2024 Lungs and central airway: Small pulmonary hyperexpansion. Reidentified is a slightly spiculated 3 mm nodule in the RIGHT upper lobe which is not changing or increasing. No additional mass or nodule. No pneumonia. Lung volumes are decreased. Pleura: Normal. No pleural effusion. Heart and pericardium: Normal size heart with no pericardial effusion. Mediastinum and chad: No adenopathy on this unenhanced exam. There are a few scattered lymph nodes bu t these are not enlarged. Vessels: Mild atherosclerosis aorta. Slightly dilated pulmonary artery. Chest wall and lower neck: Substernal thyroid. Upper abdomen: Stomach is essentially intrathoracic. There is no obstruction. Numerous hepatic cysts . These cysts were recently described on a prior CT of the abdomen and pelvis dated 04/11/2024. Some of these cysts contain calcifications. Negative gallbladder. LEFT renal cyst 1.4 cm. Osseous structures: Increase in thoracic kyphosis. Focal kyphosis centered at thoracolumbar junction. CT/CT chest wo con [id number] IMPRESSION: 1. No interval change in the very tiny slightly spiculated RIGHT upper lobe 3 mm nodule. Recommend follow-up chest CT in 1 year. 2. Intrathoracic stomach. 3. No pneumonia. 4. Poor inspiratory effort and decreased lung volumes. 5. Hepatic cysts. Some of the cysts contain wall calcification.
== END 2024-06-02 10:46 | disposition home or self-care (01) ==
LOC: RAD 10:45
PROVIDERS: PCP Nurse Practitioner; Visit Provider Nurse Practitioner
DX: R91.1 Solitary pulmonary nodule (principal); K76.89 Other specified diseases of liver
CPT/HCPCS: 71250

== ENCOUNTER 2024-08-15 09:10 | Outpatient (CLI) | payer MEDICARE, OTHER, SELFPAY ==
--- NOTE | 2024-08-15 09:20 | MM_ITS ---
WS: [id number] BILATERAL 3D TOMOSYNTHESIS DIGITAL SCREENING MAMMOGRAPHY WITH CAD CLINICAL INFORMATION: Z12.31 - Encounter for screening mammogram for malignant ... HISTORY: Screening mammogram. No current complaints. COMPARISON: 2018 TECHNIQUE: Bilateral CC and MLO views. FINDINGS: Scattered fibroglandular densities bilaterally. No suspicious focal mass, asymmetry, calcifications, or architectural distortion. No evidence of malignancy. Incidental punctate and lucent centered calci fications. Vascular calcifications. MM/MM [facility] tomosynthesis [id number] IMPRESSION: DENSITY: There are scattered areas of fibroglandular density. BI-RADS: 2 - Benign. FOLLOW UP: 1 Year Follow-up Recommend return to annual screening mammography.
== END 2024-08-15 09:11 | disposition home or self-care (01) ==
LOC: MOBLMAM 09:19
PROVIDERS: PCP Nurse Practitioner; Visit Provider Nurse Practitioner
DX: Z12.31 Encounter for screening mammogram for malignant neoplasm of breast (principal); R92.333 Mammographic heterogeneous density, bilateral breasts; R92.1 Mammographic calcification found on diagnostic imaging of breast; E55.9 Vitamin D deficiency, unspecified; I10 Essential (primary) hypertension; E78.2 Mixed hyperlipidemia
CPT/HCPCS: 77063; 77067; 80053; 80061; 82306; 84443

== ENCOUNTER → 2024-12-28 09:07 | Outpatient (BNVA) | payer MEDICARE, OTHER, SELFPAY | PROVIDERS: PCP Nurse Practitioner; Visit Provider Nurse Practitioner Family | DX: I25.10 Atherosclerotic heart disease of native coronary artery without angina pectoris (principal); I10 Essential (primary) hypertension; E78.2 Mixed hyperlipidemia; R06.02 Shortness of breath; Z87.891 Personal history of nicotine dependence | CPT/HCPCS: 99213 ==

== ENCOUNTER → 2025-02-08 09:58 | Outpatient (BNVA) | payer MEDICARE, OTHER, SELFPAY | PROVIDERS: PCP Nurse Practitioner; Visit Provider Nurse Practitioner | DX: I10 Essential (primary) hypertension (principal); F41.8 Other specified anxiety disorders | CPT/HCPCS: 80053; 80061; 85025 ==

== ENCOUNTER 2025-06-26 09:44 | Outpatient (CLI) | payer MEDICARE, OTHER, SELFPAY ==
--- NOTE | 2025-06-26 10:00 | CT_ITS ---
WS: [id number] CT chest wo con [id number] HISTORY: R91.1 - Solitary pulmonary nodule TECHNIQUE: Axial imaging performed through the thorax. Coronal and sagittal reformats are submitted. All CT scans at [facility] use at least one of these dose optimization techniques: automated exposure control; mA and/or kV adjustment per patient size (includes targeted exams where dose is matched to clinical indication); or iterative reconstruction. CONTRAST: None DLP: 434.05 mGy.cm COMPARISON: 06/02/2024, 02/16/2024 Lungs and central airway: No interval change in the very tiny spiculated RIGHT upper lobe nodule measuring 3 mm. No pneumonia. No endobronchial lesions. Pleura: Normal. No pleural effusion. Heart and pericardium: Normal size heart with no pericardial effusion. Mediastinum and chad: No mediastinum or hilar adenopathy. Vessels: Mild atherosclerosis aorta. No aneurysm. Normal size pulmonary artery. Chest wall and lower neck: Mildly enlarged LEFT thyroid extends substernal. Upper abdomen: Numerous low-attenuation masses within the liver. 1 of these masses contains wall calcification. Stomach is intrathoracic. No obstruction. Suprarenal aortic calcifications. RIGHT renal cyst. No adrenal mass. Osseous structures: No destructive process. CT/CT chest wo con [id number] IMPRESSION: 1. Stable 3 mm spiculated nodule RIGHT upper lobe since 02/16/2024. Due to smal l size no additional follow-up necessary. 2. No mediastinal or hilar adenopathy. 3. Intrathoracic stomach. 4. Numerous cystic masses and cystic masses with wall calcifications reidentif ied in the liver.
== END 2025-06-26 09:45 | disposition home or self-care (01) ==
LOC: RAD 09:45
PROVIDERS: PCP Nurse Practitioner; Visit Provider Nurse Practitioner
DX: R91.1 Solitary pulmonary nodule (principal); E04.9 Nontoxic goiter, unspecified; R16.0 Hepatomegaly, not elsewhere classified; N28.1 Cyst of kidney, acquired
CPT/HCPCS: 71250

== ENCOUNTER → 2025-07-05 09:47 | Outpatient (BNVA) | payer MEDICARE, OTHER, SELFPAY | PROVIDERS: PCP Nurse Practitioner; Visit Provider Internal Medicine Cardiovascular Disease | DX: I25.10 Atherosclerotic heart disease of native coronary artery without angina pectoris (principal); R07.9 Chest pain, unspecified; I10 Essential (primary) hypertension; E78.5 Hyperlipidemia, unspecified; Z87.891 Personal history of nicotine dependence | CPT/HCPCS: 99214 ==

== ENCOUNTER → 2025-08-02 09:43 | Outpatient (BNVA) | payer MEDICARE, OTHER, SELFPAY | PROVIDERS: PCP Nurse Practitioner; Visit Provider Nurse Practitioner | DX: E55.9 Vitamin D deficiency, unspecified (principal); I10 Essential (primary) hypertension; E78.2 Mixed hyperlipidemia | CPT/HCPCS: 80053; 80061; 81000; 82306; 82607; 84425; 84443; 85025 ==

== ENCOUNTER 2025-09-11 12:45 | Outpatient (CLI) | payer MEDICARE, OTHER, SELFPAY ==
--- NOTE | 2025-09-11 12:40 | MM_ITS ---
WS: [id number] BILATERAL 3D TOMOSYNTHESIS DIGITAL SCREENING MAMMOGRAPHY WITH CAD CLINICAL INFORMATION: SCREENING HISTORY: Screening mammogram. No current complaints. COMPARISON: 2023 TECHNIQUE: Bilateral CC and MLO views. FINDINGS: Scattered fibroglandular densities bilaterally. No suspicious focal mass, asymmetry, calcifications, or architectural distortion. No evidence of malignancy. A few incidental punctate calcifications. Vascular calcification MM/MM [facility] tomosynthesis [id number] IMPRESSION: DENSITY: There are scattered areas of fibroglandular density. BI-RADS: 2 - Benign. FOLLOW UP: 1 Year Follow-up Recommend return to annual screening mammography.
== END 2025-09-11 12:46 | disposition home or self-care (01) ==
LOC: MOBLMAM 12:50
PROVIDERS: PCP Nurse Practitioner; Visit Provider Nurse Practitioner
DX: Z12.31 Encounter for screening mammogram for malignant neoplasm of breast (principal); R92.323 Mammographic fibroglandular density, bilateral breasts; R92.1 Mammographic calcification found on diagnostic imaging of breast
CPT/HCPCS: 77063; 77067